=== PATIENT | female | born 1995 | race Caucasian/White ===

== ENCOUNTER 2020-05-21 12:21 | Observation (INO) | payer BC ==
[2020-05-21] MEDS ORDERED: Atropine/Diphenoxylate 0.025-2.5 MG Tab PO PRN (12:32)
[2020-05-21] MEDS ORDERED: Sodium Chloride 0.9% 10 ML Syringe FLUSH PRN ×2 (12:32→18:02)
[2020-05-21] MEDS ORDERED: Ondansetron 4 MG/2 ML SDV IVPUSH PRN (12:32)
[2020-05-21] MEDS ORDERED: Nalbuphine 10 MG/ML Syringe IVPUSH PRN (12:39)
[2020-05-21] MEDS ORDERED: Lactated Ringers 1,000 ML IV SCH ×2 (12:45→18:15)
[2020-05-21] MEDS ORDERED: Misoprostol 200 MCG Tab VAG ONE (13:00)
--- NOTE | 2020-05-21 13:48 | PCM.LDHP ---
L&D History of Present Illness - General Date of Service: 05/21/20 Admit Problem/Dx: Patient Status Order with Admit Dx/Problem 05/21/20 12:32 Patient Status [ADT] Routine Admission Diagnosis/Problem Admission Diagnosis/Problem demise, less than 22 weeks Source of Information: Patient History Limitations: Reports: No Limitations - History of Present Illness Introduction:: 25-year-old -0-0-1 FRANCESCA 10/27/2020 estimated gestational age estimated gestational age 17 weeks and 2 days. Patient had been on vacation in [place] and had vaginal bleeding approximately 2 weeks ago right red vaginal bleeding. At that time ultrasound was obtained heart tones were present. Seen in ER over the weekend before 05/10/2020 with bright red bleeding. heart tones were found. Warts could not rule out placenta abruption. Evidence of abruptio placenta or placenta previa on sonogram at bedside. No evidence of spontaneous rupture membranes. Patient seen on 05/10/[address] Contreras heart tones present. She was still having some bright red vaginal bleeding at that time. The bleeding very [id number] from bright red to brown. Weeks was closed on exam with a weekend when seen in the emergency room. Patient seen by Dr. Contreras on 05/18/2020 16w6d still having bright red and pink vaginal bleeding no cramping baby was moving. 3-hour glucose tolerance test was normal. Ultrasound showed viable intrauterine with normal growth interval. She had a significant decrease in amniotic fluid volume with total MATTHEW just over 6 cm. There is significantly reduced from ultrasound evaluation previously. No evidence of abruptio placentae. heart rate 171. Seen again on 05/19/2020 at 17 weeks 0 days estimated gestational age heart rate 161. Reports only brown spotting. The amount that she is spotting is less than experienced the past 2 weeks. Sound and radiology MATTHEW 6.1. Initial report is negative. (due to early gestation may not be reliable as indicator of ruptured membranes.) 05/21/2020 patient unable to obtain heart tones with Doppler and went to emergency room and [facility] where a sonogram was obtained revealing single intrauterine gestation is identified with measurements measuring at approximately 17 weeks 0 day, which corresponds to the gestational age calcula clarisse by LMP. Minimal amniotic fluid is noted with MATTHEW of less than 5. No heart motion is noted. No movements are noted. Unfortunately, this constellation of findings is compatible with intrauterine demise as clinically suspected. Patient presented to labor and delivery in [place] for evaluation. Bedside ultrasound revealed no movement no heart tones decreased amniotic fluid. Options discussed with patient and and agreed to Cytotec. Sent was obtained for D&C in case needed. Cytotec 800 mcg inserted in the vagina (4 200 g tablets) 1830 hrs. At that time cervix closed. No vaginal bleeding. 03/31/2020 blood type AB+, antibody screen negative, hemoglobin/hematocrit 13.2/39.8, platelets 236,000, Pap smear negative, rubella immune, serology nonreactive, urine culture mixed curtis suggestive of contamination, hepatitis B surface antigen negative, HIV negative, chlamydia negative, gonorrhea negative. 05/02/2020 1 hour OB glucose screen 142. 05/18/2020 nesting blood sugar 88, 1 hour blood sugar 156, 2-hour blood sugar 132, 3-hour blood sugar 44. Improves with: Reports: None Worsens with: Reports: None Associated Symptoms: Reports: N - Related Data Allergies/Adverse Reactions: Allergies Allergy/AdvReac Type Severity Reaction Status Date / Time Cephalosporins Allergy Shortness Verified 03/27/16 10:18 of Breath Sulfa (Sulfonamide Allergy Shortness Verified 03/27/16 10:18 Antibiotics) of Breath gluten AdvReac Abdominal Verified 03/27/16 12:17 Pain ibuprofen [From Motrin] AdvReac Abdominal Verified 03/27/16 12:17 Pain lactose AdvReac Indigestion Verified 03/27/16 12:17 Home Medications: Home Meds Calcium Carbonate [Tums] 500 mg PO Q2HR PRN 03/27/16 [History] Docusate Sodium [Colace] 100 mg PO DAILY PRN 03/27/16 [History] L.acidoph,Paracasei, B.lactis [Probiotic] 1 each PO DAILY 03/27/16 [History] No122/Iron/Folic Acid [ Multi Tablet] 1 each PO DAILY 03/27/16 [History] Benzocaine/Menthol [Dermoplast Pain Relief [place]] 1 applic TOP ASDIRECTED PRN #30 canister 03/30/16 [Rx] traMADol [Ultram] 50 mg PO Q6H PRN #30 tablet 07/14/16 [Rx] 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: - Past Surgical History HEENT Surgical History: Reports: Oral Surgery H&P Review of Systems - Review of Systems: Review Of Systems: See Below General: Reports: No Symptoms HEENT: Reports: No Symptoms Pulmonary: Reports: No Symptoms Cardiovascular: Reports: No Symptoms Gastrointestinal: Reports: No Symptoms Genitourinary: Reports: No Symptoms Musculoskeletal: Reports: No Symptoms Skin: Reports: No Symptoms Psychiatric: Reports: No Symptoms Neurological: Reports: No Symptoms Hematologic/Lymphatic: Reports: No Symptoms Immunologic: Reports: No Symptoms L&D Exam - Exam Exam: See Below - Vital Signs Weight: 151 lb - OB Specific Fundal Height In cm: 15 Heart Tones per Min: 0 - Problem List (1) 17 weeks gestation of SNOMED Code(s): 33908003 ICD Code: Z3A.17 - 17 WEEKS GESTATION OF Status: Acute Current Visit: Yes (2) Missed with demise before 20 completed weeks of gestation SNOMED Code(s): 24598259 ICD Code: O02.1 - MISSED Status: Acute Current Visit: Yes Problem List Initiated/Reviewed/Updated: No Orders Last 24hrs: Active Orders 24 hr Category Date Time Status Patient Status [ADT] Routine ADT 05/21/20 12:32 Active Peripheral IV Care [RC] . DIRECTED Care 05/21/20 12:35 Active VTE/DVT Education [RC] PER UNIT ROUTINE Care 05/21/20 12:32 Active Verify Patient Consent Obtain [RC] ASDIRECTED Care 05/21/20 12:32 Active Vital Signs [RC] PER UNIT ROUTINE Care 05/21/20 12:32 Active Regular Diet [DIET] Diet 05/21/20 Dinner Active CBC WITH AUTO DIFF [HEME] Routine Lab 05/21/20 13:25 Ordered TYPE AND SCREEN [BBK] Routine Lab 05/21/20 13:26 Ordered Atropine/Diphenoxylate [Lomotil 0.025-2.5 MG] Med 05/21/20 12:32 Active 2 tab PO ONETIME PRN Lactated Ringers [Ringers, Lactated] 1,000 ml Med 05/21/20 12:45 Active IV ASDIRECTED Nalbuphine [Nubain] Med 05/21/20 12:39 Active 10 mg IVPUSH Q2H PRN Ondansetron [Zofran] Med 05/21/20 12:32 Active 4 mg IVPUSH Q6H PRN Sodium Chloride 0.9% [Saline Flush] Med 05/21/20 12:32 Active 10 ml FLUSH ASDIRECTED PRN Peripheral IV Insertion Adult [OM.PC] Routine Oth 05/21/20 12:32 Ordered Resuscitation Status Routine Resus Stat 05/21/20 12:32 Ordered Medication Orders Diphenoxylate HCl/Atropine (Lomotil 0.025-2.5 Mg) 2 tab PO ONETIME PRN PRN Reason: Diarrhea Lactated Ringer's (Ringers, Lactated) 1,000 mls @ 125 mls/hr IV ASDIRECTED DERRICK Nalbuphine HCl (Nubain) 10 mg IVPUSH Q2H PRN PRN Reason: Abdominal Pain Ondansetron HCl (Zofran) 4 mg IVPUSH Q6H PRN PRN Reason: Nausea/Vomiting Sodium Chloride (Saline Flush) 10 ml FLUSH ASDIRECTED PRN PRN Reason: Keep Vein Open Assessment/Plan Comment:: Plan Cytotec to complete miscarriage.
[2020-05-21] MEDS ORDERED: Acetaminophen 325 MG Tab PO PRN (16:12)
[2020-05-21 17:32] VITALS: BP 117/56; PULSE 71
[2020-05-21] MEDS ORDERED: Lidocaine 1%/Sod Bicarbonate in NS 8.4% 1 ML Syringe IDERM PRN (18:02)
[2020-05-21] MEDS ORDERED: Oxytocin/Lactated Ringers 20 UNIT/1,000 ML BAG IV SCH (18:30)
--- NOTE | 2020-05-21 19:00 | PCM.OPNOTE ---
- General Post-Op/Procedure Note Date of Surgery/Procedure: 05/21/20 Operative Procedure(s): Completed missed surgically [id number] Pre Op Diagnosis: Missed Post-Op Diagnosis: Same Anesthesia Technique: Other (see below) (None) Primary Surgeon: Pranay Ko EBL in mLs: 100 Drain/Tube Comments:: none Complications: None Condition: Good Free Text/Narrative:: Patient was given Cytotec 800 mcg intravaginal at approximately 1330 hrs. and fetus asked at 1810 hrs. Continued cramping and at 1835 hrs. placenta was delivered intact utilizing ring forceps and long weighted speculum. Patient's blood type is AB+. Patient will be continued on Cytotec 200 mcg p.o. every 6-8 hours dispense 16 take until completed. Patient has appointment to see Dr. Ben Chandler.
--- NOTE | 2020-05-21 19:12 | PCM.DCSUM1 ---
Discharge Summary - Hospital Course Free Text/Narrative:: [facility] Post-Op/Procedure Note Patient Name: ROXANA KING Date of : 89 Patient Status: Observation Attending Provider: Pranay Ko Date: 05/21/20 18:56 Initialization Date: 05/21/20 18:56 - General Post-Op/Procedure Note Date of Surgery/Procedure: 05/21/20 Operative Procedure(s): Completed missed surgically [id number] Pre Op Diagnosis: Missed Post-Op Diagnosis: Same Anesthesia Technique: Other (see below) (None) Primary Surgeon: Pranay Ko EBL in mLs: 100 Drain/Tube Comments:: none Complications: None Condition: Good Free Text/Narrative:: Patient was given Cytotec 800 mcg intravaginal at approximately 1330 hrs. and fetus asked at 1810 hrs. Continued cramping and at 1835 hrs. placenta was delivered intact utilizing ring forceps and long weighted speculum. Patient's blood type is AB+. Patient will be continued on Cytotec 200 mcg p.o. every 6-8 hours dispense 16 take until completed. Patient has appointment to see Dr. Ben Chandler. HPI Initial Comments: [facility] Post-Op/Procedure Note Patient Name: ROXANA KING Date of : [birth year] Patient Status: Observation Attending Provider: Pranay Ko Date: 05/21/20 18:56 Initialization Date: 05/21/20 18:56 - General Post-Op/Procedure Note Date of Surgery/Procedure: 05/21/20 Operative Procedure(s): Completed missed surgically [id number] Pre Op Diagnosis: Missed Post-Op Diagnosis: Same Anesthesia Technique: Other (see below) (None) Primary Surgeon: Pranay Ko EBL in mLs: 100 Drain/Tube Comments:: none Complications: None Condition: Good Free Text/Narrative:: Patient was given Cytotec 800 mcg intravaginal at approximately 1330 hrs. and fetus asked at 1810 hrs. Continued cramping and at 1835 hrs. placenta was delivered intact utilizing ring forceps and long weighted speculum. Patient's blood type is AB+. Patient will be continued on Cytotec 200 mcg p.o. every 6-8 hours dispense 16 take until completed. Patient has appointment to see Dr. Ben Chandler. Brief History: [facility] . Post-Op/Procedure Note. Patient Name: ROXANA KING Record Number: [id number]. Date of : [birth year]Patient Status: Observation. Attending Provider: Pranay Koount Number: [id number]. Date: 05/21/20 18:56Initialization Date: 05/21/20 18:56. - General Post-Op/Procedure Note. Date of Surgery/Procedure: 05/21/20. Operative Procedure(s): Completed missed surgically [id number]. Pre Op Diagnosis: Missed . Post-Op Diagnosis: Same. Anesthesia Technique: Other (see below) (None). Primary Surgeon: Pranay Ko. EBL in mLs: 100. Drain/Tube Comments:: none. Complications: None. Condition: Good. Free Text/Narrative:: Patient was given Cytotec 800 mcg intravaginal at approximately 1330 hrs. and fetus asked at 1810 hrs. Continued cramping and at 1835 hrs. placenta was delivered intact utilizing ring forceps and long weighted speculum. Patient's blood type is AB+. Patient will be continued on Cytotec 200 mcg p.o. every 6-8 hours dispense 16 take until completed. Patient has appointment to see Dr. Ben Chandler. Diagnosis: Stroke: No - Discharge Data Discharge Date: 05/21/20 Discharge Disposition: Home, Self-Care 01 Condition: Good - Referral to Home Health Primary Care Physician: Jin Contreras MD - Discharge Diagnosis/Problem(s) (1) 17 weeks gestation of SNOMED Code(s): 66072615 ICD Code: Z3A.17 - 17 WEEKS GESTATION OF Status: Acute Current Visit: Yes (2) Missed with demise before 20 completed weeks of gestation SNOMED Code(s): 16187320 ICD Code: O02.1 - MISSED Status: Acute Current Visit: Yes - Patient Summary/Data Operative Procedure(s) Performed: Completed missed surgically [id number] Complications: None Consults: None Hospital Course: Uncomplicated - Patient Instructions Diet: Usual Diet as Tolerated Driving: Do Not Drive (X48 hours) Showering/Bathing: May Shower, No Tub Bathing/Swimming (x6 weeks) Notify Provider of: Fever (100.4 on 2 occasions 2 hours apart), Increased Pain, Swelling and Redness, Drainage, Nausea and/or Vomiting - Discharge Plan *PRESCRIPTION DRUG MONITORING PROGRAM REVIEWED*: Not Applicable *COPY OF PRESCRIPTION DRUG MONITORING REPORT IN PATIENT SERENITY: Not Applicable Prescriptions/Med Rec: miSOPROStoL [Cytotec] 200 mcg PO Q6H #15 tablet Ibuprofen [Motrin] 600 mg PO Q6H PRN #50 tab PRN Reason: Pain Home Medications: Home Meds Calcium Carbonate [Tums] 500 mg PO Q2HR PRN 03/27/16 [History] Docusate Sodium [Colace] 100 mg PO DAILY PRN 03/27/16 [History] L.acidoph,Paracasei, B.lactis [Probiotic] 1 each PO DAILY 03/27/16 [History] No122/Iron/Folic Acid [ Multi Tablet] 1 each PO DAILY 03/27/16 [History] Benzocaine/Menthol [Dermoplast Pain Relief [place]] 1 applic TOP ASDIRECTED PRN #30 canister 03/30/16 [Rx] traMADol [Ultram] 50 mg PO Q6H PRN #30 tablet 03/30/16 [Rx] Acetaminophen [Tylenol] 650 mg PO Q4H PRN tablet 05/21/20 [Rx] Ibuprofen [Motrin] 600 mg PO Q6H PRN #50 tab 05/21/20 [Rx] miSOPROStoL [Cytotec] 200 mcg PO Q6H #15 tablet 05/21/20 [Rx] Referrals: Jin Contreras MD [Primary Care Provider] - (Appointment Sunday) - Discharge Summary/Plan Comment DC Time >30 min.: No - Patient Data Vitals - Most Recent: Last Vital Signs Temp 98.5 F 05/21/20 17:31 Pulse 71 05/21/20 17:31 Resp 18 05/21/20 15:56 BP 117/56 L 05/21/20 17:31 Pulse Ox 99 05/21/20 16:15 Weight - Most Recent: 151 lb Lab Results - Last 24 hrs: Laboratory Results - last 24 hr 05/21/20 05/21/20 05/21/20 Range/Units 13:35 14:48 14:48 WBC 9.01 (3.98-10.04) K/mm3 RBC 4.19 (3.98-5.22) M/mm3 Hgb 12.9 (11.2-15.7) gm/dl Hct 37.7 (34.1-44.9) % MCV 90.0 (79.4-94.8) fl MCH 30.8 (25.6-32.2) pg MCHC 34.2 (32.2-35.5) g/dl RDW Std Deviation 39.9 (36.4-46.3) fL Plt Count 294 (182-369) K/mm3 MPV 11.0 (9.4-12.3) fl Neut % (Auto) 70.5 (34.0-71.1) % Lymph % (Auto) 20.3 (19.3-51.7) % Milam % (Auto) 6.5 (4.7-12.5) % Eos % (Auto) 2.1 (0.7-5.8) Baso % (Auto) 0.3 (0.1-1.2) % Neut # (Auto) 6.34 H (1.56-6.13) K/mm3 Lymph # (Auto) 1.83 (1.18-3.74) K/mm3 Milam # (Auto) 0.59 H (0.24-0.36) K/mm3 Eos # (Auto) 0.19 (0.04-0.36) K/mm3 Baso # (Auto) 0.03 (0.01-0.08) K/mm3 COVID-19 (LEX) Negative (NEGATIVE) Blood Type AB POSITIVE Gel Antibody Screen Negative Med Orders - Current: Current Medications Acetaminophen (Tylenol) 650 mg PO Q4H PRN PRN Reason: Fever Last Admin: 05/21/20 16:17 Dose: 650 mg Documented by: Diphenoxylate HCl/Atropine (Lomotil 0.025-2.5 Mg) 2 tab PO ONETIME PRN PRN Reason: Diarrhea Lactated Ringer's (Ringers, Lactated) 1,000 mls @ 125 mls/hr IV ASDIRECTED DERRICK Last Admin: 05/21/20 16:10 Dose: 125 mls/hr Documented by: Oxytocin/Lactated Ringer's (Pitocin In Lr 20 Units/1,000 Ml) 20 unit in 1,000 mls @ 6 mls/hr IV TITRATE DERRICK; Protocol Last Admin: 05/21/20 18:43 Dose: 6 mls/hr Documented by: Lidocaine/Sodium Bicarbonate (Buffered Lidocaine 1% In Ns 8.4%) 0.25 ml IDERM ONETIME PRN PRN Reason: Prior to IV Start Nalbuphine HCl (Nubain) 10 mg IVPUSH Q2H PRN PRN Reason: Abdominal Pain Last Admin: 05/21/20 17:20 Dose: 5 mg Documented by: Ondansetron HCl (Zofran) 4 mg IVPUSH Q6H PRN PRN Reason: Nausea/Vomiting Sodium Chloride (Saline Flush) 10 ml FLUSH ASDIRECTED PRN PRN Reason: Keep Vein Open Discontinued Medications Lactated Ringer's (Ringers, Lactated) 1,000 mls @ 125 mls/hr IV ASDIRECTED [facility] Misoprostol (Cytotec) 800 mcg VAG ONETIME ONE Stop: 05/21/20 13:01 Last Admin: 05/21/20 13:24 Dose: 800 mcg Documented by: Sodium Chloride (Saline Flush) 10 ml FLUSH ASDIRECTED PRN PRN Reason: Keep Vein Open
== END 2020-05-21 22:40 | disposition home or self-care (01) ==
LOC: JD.OBCHECK 12:21 → JD.OB 12:21 → JD.OBCHECK 12:32 → JD.OB 12:32
PROVIDERS: ADMIT Obstetrics & Gynecology; ATTEND Obstetrics & Gynecology
DX: O02.1 Missed abortion (principal); Z88.1 Allergy status to other antibiotic agents; Z88.2 Allergy status to sulfonamides; Z88.6 Allergy status to analgesic agent; Z91.011 Allergy to milk products; Z01.812 Encounter for preprocedural laboratory examination; Z20.828 Contact with and (suspected) exposure to other viral communicable diseases; Z79.899 Other long term (current) drug therapy
CPT/HCPCS: 36415; 59821; 85025; 86850; 86900; 86901; 87635; 96374; 96375; A9270; G0378; J2300; J2590; J7120; U0002

== ENCOUNTER → 2020-06-25 | Day surgery (SDC) | payer BC ==
[~2020-06-25] MED LIST: Clindamycin Phosphate in D5W 900 MG in Premix Bag 1 BAG IV SCH; Dexamethasone 4 MG/ML SDV ONE; Ibuprofen 600 MG Tab PO PRN; Ketamine 500 mg/10 ML MDV ONE; Ketorolac 30 MG/ML SDV IVPUSH SCH; Ketorolac 30 MG/ML SDV ONE; Lactated Ringers 1,000 ML IV SCH; Lidocaine 1% 4 ML ONE; Lidocaine 1%/Sod Bicarbonate in NS 8.4% 1 ML Syringe IDERM PRN; Midazolam 1 MG/ML 2 ML SDV ONE; Ondansetron 4 MG/2 ML SDV ONE; Propofol 200 MG/20 ML SDV ONE; Scopolamine 1.5 MG Transdermal Patch TRDERM PRN; Sodium Chloride 0.9% 10 ML Syringe FLUSH PRN; diphenhydrAMINE 50 MG/ML SDV ONE; fentaNYL 100 MCG/2 ML SDV IVPUSH PRN; fentaNYL 100 MCG/2 ML SDV ONE
--- NOTE | 2020-06-25 07:38 | PCM.PREANE ---
Preanesthetic Assessment - Procedure Proposed Procedure: Suction D&C - Anesthesia/Transfusion/Family Hx Anesthesia History: Prior Anesthesia Without Reaction Family History of Anesthesia Reaction: No Transfusion History: No Prior Transfusion(s) Intubation History: Unknown - Review of Systems General: No Symptoms Pulmonary: No Symptoms ( ETOH: rarely) Cardiovascular: No Symptoms (Has had some epidodes with hypotension in the past. (Asymptomatic)) Gastrointestinal: No Symptoms (Motion sickness) Neurological: No Symptoms Other: Reports: None, Depression, Anxiety (History of panic attacks) - Physical Assessment NPO Status Date: 06/24/20 NPO Status Time: 21:00 Vital Signs: HR:87 Sat:97% Temp:97.7 B/P:122/69 Resp:18 Height: 1.63 m Weight: 71 kg ASA Class: 2 Mental Status: Alert & Oriented x3 Airway Class: Mallampati = 2 Dentition: Reports: Normal Dentition, Caries Thyro-Mental Finger Breadths: 3 Mouth Opening Finger Breadths: 3 ROM/Head Extension: Full Lungs: Clear to Auscultation, Normal Respiratory Effort Cardiovascular: Regular Rate, Regular Rhythm, No Murmurs - Lab Values: All labs reviewed and noted and within acceptable ranges to proceed with scheduled procedure. - Allergies Allergies/Adverse Reactions: Allergies Allergy/AdvReac Type Severity Reaction Status Date / Time Cephalosporins Allergy Shortness Verified 06/25/20 08:27 of Breath escitalopram [From Lexapro] Allergy suicidal Verified 06/25/20 08:27 ideations Sulfa (Sulfonamide Allergy Shortness Verified 06/25/20 08:27 Antibiotics) of Breath gluten AdvReac Abdominal Verified 06/25/20 08:27 Pain ibuprofen [From Motrin] AdvReac Abdominal Verified 06/25/20 08:27 Pain lactose AdvReac Indigestion Verified 06/25/20 08:27 - Anesthesia Plan Pre-Op Medication Ordered: None - Acknowledgements Anesthesia Type Planned: General Anesthesia, MAC Pt an Appropriate Candidate for the Planned Anesthesia: Yes Alternatives and Risks of Anesthesia Discussed w Pt/Guardian: Yes Pt/Guardian Understands and Agrees with Anesthesia Plan: Yes PreAnesthesia Questionnaire HEENT History: Reports: None Cardiovascular History: Reports: Heart Murmur Other Cardiovascular History: 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: Other OB/BYN History: 17 wk IUFD after 15 wk PROM Psychiatric History: Reports: Anxiety, Depression, Suicidal Ideation, Other (See Below) Other Psychiatric History: had suicidal thoughts with taking antidepressants, never intention to follow through, denies any thoughts when off the meds - Past Surgical History HEENT Surgical History: Reports: Oral Surgery - HOME MEDS Home Medications: Home Meds L.acidoph,Paracasei, B.lactis [Probiotic] 1 each PO DAILY 03/27/16 [History] No122/Iron/Folic Acid [ Multi Tablet] 1 each PO DAILY 03/27/16 [History] Acetaminophen [Tylenol] 650 mg PO Q4H PRN tablet 05/21/20 [Rx] Fish Oil/Slater-3 Fatty Acids [Fish Oil 1,000 MG] 1 gm PO DAILY 06/25/20 [History] - CURRENT (IN HOUSE) MEDS Current Meds: Current Medications Lactated Ringer's (Ringers, Lactated) 1,000 mls @ 125 mls/hr IV ASDIRECTED DERRICK Stop: 06/25/20 23:00 Lidocaine/Sodium Bicarbonate (Buffered Lidocaine 1% In Ns 8.4%) 0.25 ml IDERM ONETIME PRN PRN Reason: Prior to IV Start Stop: 06/25/20 18:00 Sodium Chloride (Saline Flush) 10 ml FLUSH ASDIRECTED PRN PRN Reason: Keep Vein Open Stop: 06/25/20 18:00
--- NOTE | 2020-06-25 09:50 | PCM.OPNOTE ---
- General Post-Op/Procedure Note Date of Surgery/Procedure: 06/25/20 Operative Procedure(s): Dilation and suction curettage Findings: Uterus sounded to 9 cm. Cervix was minimally dilated. Endometrial curettings consistent with retained products of conception. Pre Op Diagnosis: 1. Retained products of conception. 2. Abnormal uterine bleeding Post-Op Diagnosis: Same Anesthesia Technique: MAC Primary Surgeon: Jin Contreras Anesthesia Provider: Saritha Rosales Flight Attendant/Inflight Supervisor: Sanna Fitzgerald Pathology: Endometrial curettings, consistent with retained products of conception. Fluid Replacement, Intraop: 700 EBL in mLs: 5 Complications: None Condition: Good Free Text/Narrative:: Surgery duration: 6 minutes The patient was taken to the operating room and placed in a supine position ope rating table. She received 90 mg of clindamycin preoperatively for infection prophylaxis. After adequate general MAC anesthesia patient was placed in a dorsal lithotomy position. A weighted speculum was placed in the vagina. Cervix is found to be dilated to approximately 5 centimeters. Uterus was sounded to approximately 9 cm. It was found to be posterior and mid position. A 7 mm suction curette was then introduced in routine fashion the endometrial cavity was evacuated. Moderate amount tissue was obtained. Findings consistent with products of conception. A medium size sharp curet was introduced and very careful fashion the endometrial cavity was curetted. It was be clear of any further tissue. The suction curet was then reintroduced and small and blood was removed. No further tissue was removed. This point the D&C was discontinued. The single-toothed tenaculum used to stabilize the anterior lip the cervix was removed. Blood was removed from the vagina with a stick sponge and the weighted speculum was removed from the vagina. The patient was awakened from LMA anesthesia. The patient was discharged from the operating room in good condition.
--- NOTE | 2020-06-25 13:14 | PCM48HPAN ---
Post Anesthesia Note - EVALUATION WITHIN 48HRS OF ANESTHETIC Vital Signs in Normal Range: Yes Patient Participated in Evaluation: Yes Respiratory Function Stable: Yes Airway Patent: Yes Cardiovascular Function Stable: Yes Hydration Status Stable: Yes Pain Control Satisfactory: Yes Nausea and Vomiting Control Satisfactory: Yes Mental Status Recovered: Yes Vital Signs: Last Vital Signs Temp 97.5 F 06/25/20 10:00 Pulse 64 06/25/20 10:00 Resp 18 06/25/20 10:00 BP 110/76 06/25/20 10:00 Pulse Ox 97 06/25/20 10:00
[2020-06-25 13:29] VITALS: BP 99/57; PULSE 68
== END | disposition home or self-care (01) ==
LOC: JD.SDS 07:38
PROVIDERS: ATTEND Obstetrics & Gynecology
DX: O73.1 Retained portions of placenta and membranes, without hemorrhage (principal); N93.9 Abnormal uterine and vaginal bleeding, unspecified; F41.9 Anxiety disorder, unspecified; J45.909 Unspecified asthma, uncomplicated; F41.8 Other specified anxiety disorders; F41.0 Panic disorder [episodic paroxysmal anxiety]; Z79.899 Other long term (current) drug therapy; Z88.8 Allergy status to other drugs, medicaments and biological substances; Z88.2 Allergy status to sulfonamides
CPT/HCPCS: 59160; A9270; J1100; J1200; J1885; J2001; J2250; J2405; J2704; J3010; J3490; J7120; 01965

== ENCOUNTER 2020-06-29 09:29 | Emergency (ER) | payer BC ==
[2020-06-29 09:40] VITALS: BP 129/81; PULSE 111
--- NOTE | 2020-06-29 09:50 | EDM.PDOC ---
ED HPI GENERAL MEDICAL PROBLEM - General Chief Complaint: Gastrointestinal Problem Stated Complaint: WEAKNESS/CONFUSION/DIZZY/POST SURGERY Time Seen by Provider: 06/29/20 09:50 - History of Present Illness INITIAL COMMENTS - FREE TEXT/NARRATIVE: 25-year-old female comes the emergency room with lower abdominal pain nausea and vomiting. The patient had a termination of due to a demise. This was nearly a month ago she was having complications after this and underwent a D&C this last Sunday now 5 days ago. She was seen in the gynecology clinic yesterday where she had a urinalysis that was possibly suggestive of a UTI. She was started on Macrobid however has been unable to take this due to nausea and vomiting. She has not had any fevers or chills but generally just feels awful. Prior to the D&C she was treated for bacterial vaginosis with metronidazole and has suffered some side effects from this most notably lower extremity numbness. Pelvic Pain Score (Numeric/FACES): 4 - Related Data Allergies Allergy/AdvReac Type Severity Reaction Status Date / Time Cephalosporins Allergy Severe Shortness Verified 06/29/20 09:40 of Breath Sulfa (Sulfonamide Allergy Severe Shortness Verified 06/29/20 09:40 Antibiotics) of Breath escitalopram [From Lexapro] AdvReac Severe suicidal Verified 06/29/20 09:40 ideations gluten AdvReac Severe Abdominal Verified 06/29/20 09:40 Pain ibuprofen [From Motrin] AdvReac Severe Abdominal Verified 06/29/20 09:40 Pain lactose AdvReac Severe Indigestion Verified 06/29/20 09:40 metronidazole [From Flagyl] AdvReac Severe Numbness Verified 06/29/20 09:40 Home Meds: Home Meds L.acidoph,Paracasei, B.lactis [Probiotic] 1 each PO DAILY 03/27/16 [History] Multivitamin 1 each PO DAILY 06/29/20 [History] Ondansetron [Zofran ODT] 4 mg PO Q6H PRN #8 tab.dis 06/29/20 [Rx] Past Medical History HEENT History: Reports: None Cardiovascular History: Reports: Heart Murmur Other Cardiovascular History: mild s1 murmur in Respiratory History: Reports: None Gastrointestinal History: Reports: None Genitourinary History: Reports: None 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: , 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 Other MEASURING MACHINE TENDER History: 17 wk IUFD after 15 wk PROM Musculoskeletal History: Reports: None Neurological History: Reports: None Psychiatric History: Reports: Anxiety, Depression, Suicidal Ideation, Other (See Below) Other Psychiatric History: had suicidal thoughts with taking antidepressants, never intention to follow through, denies any thoughts when off the meds Endocrine/Metabolic History: Reports: None Hematologic History: Reports: None Immunologic History: Reports: None Oncologic (Cancer) History: Reports: None Dermatologic History: Reports: None - Infectious Disease History Infectious Disease History: Reports: None - Past Surgical History HEENT Surgical History: Reports: Oral Surgery Female Surgical History: Reports: D&C Social & Family History - Family History Endocrine/Metabolic: Reports: Diabetes, Type I, Diabetes, type II Hematologic: Reports: Bleeding Disorder Oncologic: Reports: Lung - Tobacco Use Tobacco Use Status *Q: Never Tobacco User - Caffeine Use Caffeine Use: Reports: None - Recreational Drug Use Recreational Drug Use: No ED ROS GENERAL - Review of Systems Review Of Systems: See Below Constitutional: Reports: No Symptoms HEENT: Reports: No Symptoms Respiratory: Reports: No Symptoms Cardiovascular: Reports: No Symptoms GI/Abdominal: Reports: Abdominal Pain, Nausea. Denies: Constipation, Diarrhea : Reports: Other (Bladder pain) Musculoskeletal: Reports: No Symptoms Skin: Reports: No Symptoms Neurological: Reports: No Symptoms Hematologic/Lymphatic: Reports: No Symptoms Immunologic: Reports: No Symptoms ED EXAM, GENERAL - Physical Exam Exam: See Below Exam Limited By: No Limitations General Appearance: Alert, No Apparent Distress, Anxious Head: Atraumatic, Normocephalic Neck: Normal Inspection, Supple, Non-Tender, Full Range of Motion. No: Lymphadenopathy (R) Respiratory/Chest: No Respiratory Distress, Lungs Clear, Normal Breath Sounds Cardiovascular: Regular Rate, Rhythm, No Edema, No Murmur GI/Abdominal: Normal Bowel Sounds, Soft, Tender (Some vague tenderness that is very mild throughout. Most notable tenderness is in the suprapubic area and this is more significant. However no rigidity rebound or guarding noted). No: Guarding, Rigid, Rebound Back Exam: Normal Inspection. No: CVA Tenderness (L) Neurological: Alert, Oriented, Normal Cognition Psychiatric: Anxious (Mildly anxious about her overall situation) Course - Vital Signs Last Recorded V/S: Last Vital Signs Temp 36.1 C 10/13/20 09:35 Pulse 111 H 06/29/20 09:35 Resp 16 06/29/20 09:35 BP 129/81 06/29/20 09:35 Pulse Ox 100 06/29/20 09:35 - Orders/Labs/Meds Orders: Active Orders 24 hr Category Date Time Status CULTURE URINE [RM] Stat Lab 06/29/20 10:09 Received Lactated Ringers [Ringers, Lactated] 1,000 ml Med 06/29/20 09:55 Active IV ASDIRECTED Lactated Ringers [Ringers, Lactated] 1,000 ml Med 06/29/20 11:15 Active IV ASDIRECTED Medication Orders Lactated Ringer's (Ringers, Lactated) 1,000 mls @ 1,000 mls/hr IV ASDIRECTED DERRICK Last Admin: 06/29/20 10:05 Dose: 1,000 mls/hr Documented by: JORY Lactated Ringer's (Ringers, Lactated) 1,000 mls @ 150 mls/hr IV ASDIRECTED DERRICK Last Admin: 06/29/20 11:15 Dose: 150 mls/hr Documented by: JORY Labs: Laboratory Tests 06/29/20 06/29/20 06/29/20 Range/Units 09:35 09:35 10:09 WBC 8.32 (3.98-10.04) K/mm3 RBC 5.08 (3.98-5.22) M/mm3 Hgb 15.4 (11.2-15.7) gm/dl Hct 45.4 H (34.1-44.9) % MCV 89.4 (79.4-94.8) fl MCH 30.3 (25.6-32.2) pg MCHC 33.9 (32.2-35.5) g/dl RDW Std Deviation 38.4 (36.4-46.3) fL Plt Count 305 (182-369) K/mm3 MPV 11.2 (9.4-12.3) fl Neut % (Auto) 71.0 (34.0-71.1) % Lymph % (Auto) 20.7 (19.3-51.7) % [place] % (Auto) 5.6 (4.7-12.5) % Eos % (Auto) 2.2 (0.7-5.8) Baso % (Auto) 0.4 (0.1-1.2) % Neut # (Auto) 5.91 (1.56-6.13) K/mm3 Lymph # (Auto) 1.72 (1.18-3.74) K/mm3 [place] # (Auto) 0.47 H (0.24-0.36) K/mm3 Eos # (Auto) 0.18 (0.04-0.36) K/mm3 Baso # (Auto) 0.03 (0.01-0.08) K/mm3 Sodium 139 (136-145) mEq/L Potassium 3.6 (3.5-5.1) mEq/L Chloride 102 (98-107) mEq/L Carbon Dioxide 25 (21-32) mEq/L Anion Gap 15.6 H (5-15) BUN 8 (7-18) mg/dL Creatinine 0.7 (0.55-1.02) mg/dL Est Cr Clr Drug Dosing 109.59 mL/min Estimated GFR (MDRD) > 60 (>60) mL/min BUN/Creatinine Ratio 11.4 L (14-18) Glucose 134 H (74-106) mg/dL Calcium 9.2 (8.5-10.1) mg/dL Total Bilirubin 0.6 (0.2-1.0) mg/dL AST 24 (15-37) U/L ALT 46 (14-59) U/L Alkaline Phosphatase 57 (46-116) U/L Total Protein 8.0 (6.4-8.2) g/dl Albumin 4.3 (3.4-5.0) g/dl Globulin 3.7 gm/dL Albumin/Globulin Ratio 1.2 (1-2) Urine Color Yellow (Yellow) Urine Appearance Clear (Clear) Urine pH 7.0 (5.0-8.0) Ur Specific [place] 1.015 (1.005-1.030) Urine Protein Negative (Negative) Urine Glucose (UA) Negative (Negative) Urine Ketones Trace H (Negative) Urine Occult Blood Trace-lysed H (Negative) Urine Nitrite Positive H (Negative) Urine Bilirubin Negative (Negative) Urine Urobilinogen 0.2 (0.2-1.0) Ur Leukocyte Esterase Negative (Negative) Urine RBC 0-5 (0-5) /hpf Urine WBC Not seen (0-5) /hpf Ur Squamous Epith Cells 0-5 (0-5) /hpf Urine Bacteria Few (FEW) /hpf Urine Mucus Not seen (FEW) /hpf Meds: Medications Generic Name Dose Route Start Last Admin Trade Name Freq PRN Reason Stop Dose Admin Lactated Ringer's 1,000 mls @ 1,000 mls/hr 06/29/20 09:55 06/29/20 10:05 Ringers, Lactated IV 1,000 mls/hr ASDIRECTED DERRICK Administration Lactated Ringer's 1,000 mls @ 150 mls/hr 06/29/20 11:15 06/29/20 11:15 Ringers, Lactated IV 150 mls/hr ASDIRECTED DERRICK Administration Discontinued Medications Generic Name Dose Route Start Last Admin Trade Name Freq PRN Reason Stop Dose Admin Ondansetron HCl 4 mg 06/29/20 09:54 06/29/20 10:05 Zofran IVPUSH 06/29/20 09:55 4 mg ONETIME ONE Administration - Re-Assessments/Exams Free Text/Narrative Re-Assessment/Exam: 06/29/20 12:34 Urinalysis is positive only for nitrates however the patient took an Azo last night. Laboratory evaluation shows anion gap is slightly elevated at 15.9. Otherwise chemistries and CBC are for the most part normal. I discussed the si tuation with Dr. Contreras. He is fairly convinced that her pain was coming from the bladder area. The patient is really reluctant to take an unnecessary antibiotic at this point because the night is all that she took really did not number on her she still having some numbness in her legs as a result of this. At this point she has a urine culture pending from the urine Dr. Contreras obtained yesterday and if this is unrevealing we could recheck another urine tomorrow. At this point we will just hold off on her taking anything except for Zofran as needed for nausea so she can stay hydrated put her on a clear liquid diet for the next 24 hours and have her follow-up tomorrow for repeat UA. Repeat abdominal exam shows good bowel sounds no rigidity rebound or guarding she has some suprapubic discomfort. Vague minimal abdominal pain noted elsewhere. He has nothing close to a surgical abdomen. We did discuss the pros and cons of CT evaluation and the patient agrees on holding off at this time. Departure - Departure Time of Disposition: 12:32 Disposition: Home, Self-Care 01 Clinical Impression: Abdominal pain - Discharge Information Referrals: PCP,None [Ordering Only Provider] - Forms: ED Department Discharge Additional Instructions: Return to the emergency room with any questions problems or worsening symptoms. Clear liquid diet for the next 24 hours then slowly advance as tolerated. You have had a prescription sent to your pharmacy for Zofran, this is a oral antinausea medication use 1 every 6 hours only if needed for nausea control and vomiting. Follow-up with Dr. Contreras tomorrow for repeat urinalysis. Sepsis Event Note (ED) - Evaluation Sepsis Screening Result: No Definite Risk - Focused Exam Vital Signs: Vital Signs Temp Pulse Resp BP Pulse Ox 06/29/20 09:35 36.1 C 111 H 16 129/81 100 - My Orders Last 24 Hours: My Active Orders 06/29/20 09:55 Lactated Ringers [Ringers, Lactated] 1,000 ml IV ASDIRECTED 06/29/20 10:09 CULTURE URINE [RM] Stat 06/29/20 11:15 Lactated Ringers [Ringers, Lactated] 1,000 ml IV ASDIRECTED - Assessment/Plan Last 24 Hours: My Active Orders 06/29/20 09:55 Lactated Ringers [Ringers, Lactated] 1,000 ml IV ASDIRECTED 06/29/20 10:09 CULTURE URINE [RM] Stat 06/29/20 11:15 Lactated Ringers [Ringers, Lactated] 1,000 ml IV ASDIRECTED
[2020-06-29] MEDS ORDERED: Ondansetron 4 MG/2 ML SDV IVPUSH ONE (09:54)
[2020-06-29] MEDS ORDERED: Lactated Ringers 1,000 ML IV SCH ×2 (09:55→11:15)
== END 2020-06-29 12:50 | disposition home or self-care (01) ==
LOC: JD.ED 09:29
DX: R10.30 Lower abdominal pain, unspecified (principal); R11.2 Nausea with vomiting, unspecified; Z88.1 Allergy status to other antibiotic agents; Z88.2 Allergy status to sulfonamides; Z91.048 Other nonmedicinal substance allergy status; Z88.6 Allergy status to analgesic agent
CPT/HCPCS: 36415; 80053; 81001; 85025; 87086; 87088; 87186; 96361; 96374; 99284; J2405; J7120; 99283

== ENCOUNTER 2021-10-27 23:23 | Inpatient (IN) | payer BC ==
[2021-10-28] MEDS ORDERED: Calcium Carbonate 500 MG Tab.Chew PO PRN (00:05)
[2021-10-28] MEDS ORDERED: Acetaminophen 325 MG Tab PO PRN (00:05)
[2021-10-28] MEDS ORDERED: Lidocaine 1% 50 ML MDV INJECT PRN (00:05)
[2021-10-28] MEDS ORDERED: Ondansetron 4 MG/2 ML SDV IVPUSH PRN (00:05)
[2021-10-28] MEDS ORDERED: Nalbuphine 10 MG/1 ML Vial IVPUSH PRN (00:05)
[2021-10-28] MEDS ORDERED: Ampicillin 2 GM in Sodium Chloride 0.9% 100 ML IV ONE (00:05)
[2021-10-28] MEDS ORDERED: Oxytocin/Lactated Ringers 10 UNIT/1,000 ML BAG IV SCH ×2 (00:15)
[2021-10-28] MEDS ORDERED: Ampicillin 1 GM in Sodium Chloride 0.9% 100 ML IV SCH (00:15)
[2021-10-28] MEDS ORDERED: Phenylephrine/Normal Saline 100 MCG/ML 10 ML Syringe ONE (02:00)
[2021-10-28] MEDS ORDERED: fentaNYL 100 MCG/2 ML SDV EPIDUR PRN (02:26)
[2021-10-28] MEDS ORDERED: ePHEDrine 50 MG/ML SDV IVPUSH PRN (02:26)
[2021-10-28] MEDS ORDERED: diphenhydrAMINE 50 MG/ML SDV IVPUSH PRN (02:26)
[2021-10-28] MEDS ORDERED: Bupivacaine/fentaNYL/NS 100 ML Bag EPIDUR PRN (02:26)
[2021-10-28] MEDS: Lactated Ringers 1,000 ML IV SCH ×5 (03:03→09:20)
[2021-10-28] MEDS ORDERED: Dexmedetomidine 200 MCG/2 ML SDV ONE (04:36)
[2021-10-28] MEDS: Ampicillin 1 GM in Sodium Chloride 0.9% 100 ML IV SCH ×3 (04:42→12:46)
[2021-10-28] MEDS ORDERED: Ibuprofen 600 MG Tab PO PRN (13:29)
[2021-10-28] MEDS ORDERED: Benzocaine/Menthol 20%-0.5% Spray 78 GM Cannister TOP PRN (14:26)
[2021-10-28] MEDS ORDERED: Docusate Sodium 100 MG Cap PO PRN (14:26)
[2021-10-28] MEDS ORDERED: Witch Hazel Medicated Pads 40/Jar TOP PRN (14:26)
[2021-10-28] MEDS: Acetaminophen 325 MG Tab PO PRN ×2 (15:15→19:41)
[2021-10-28] MEDS: Ibuprofen 600 MG Tab PO PRN ×2 (18:15→23:44)
[2021-10-29] MEDS: Ibuprofen 600 MG Tab PO PRN ×2 (05:00→09:16)
[2021-10-29] MEDS ORDERED: Prenatal Multivitamin with Calcium/Folic Acid/Iron Tab PO SCH (09:00)
[2021-10-29 14:00] VITALS: BP 115/68; PULSE 69
== END 2021-10-29 11:35 | disposition home or self-care (01) | DRG 560 ==
LOC: JD.OBCHECK 23:23 → JD.OB 23:26 → JD.OBCHECK 10-28 00:04 → JD.OB 10-28 00:05 → OBSVTOIN 10-28 10:50 → JD.OB 10-28 10:51
PROVIDERS: ADMIT Obstetrics & Gynecology; ATTEND Obstetrics & Gynecology
PROC: 10E0XZZ Delivery of Products of Conception, External Approach (ICD-10-PCS; principal; 2021-10-28)
PROC: 10907ZC Drainage of Amniotic Fluid, Therapeutic from Products of Conception, Via Natural or Artificial Opening (ICD-10-PCS; 2021-10-28)
PROC: 0W8NXZZ Division of Female Perineum, External Approach (ICD-10-PCS; 2021-10-28)
PROC: 3E033VJ Introduction of Other Hormone into Peripheral Vein, Percutaneous Approach (ICD-10-PCS; 2021-10-28)
PROC: 3E0R3BZ Introduction of Anesthetic Agent into Spinal Canal, Percutaneous Approach (ICD-10-PCS; 2021-10-28)
PROC: 00HU33Z Insertion of Infusion Device into Spinal Canal, Percutaneous Approach (ICD-10-PCS; 2021-10-28)
DX: O24.420 Gestational diabetes mellitus in childbirth, diet controlled (principal); Z37.0 Single live birth; O76 Abnormality in fetal heart rate and rhythm complicating labor and delivery; O99.62 Diseases of the digestive system complicating childbirth; K59.09 Other constipation; O99.02 Anemia complicating childbirth; D64.9 Anemia, unspecified; Z3A.37 37 weeks gestation of pregnancy; Z20.822 Contact with and (suspected) exposure to COVID-19; Z88.6 Allergy status to analgesic agent; Z91.011 Allergy to milk products; Z88.8 Allergy status to other drugs, medicaments and biological substances
CPT/HCPCS: 36415; 51702; 59025; 59409; 85025; 86592; 86850; 86900; 86901; A9270-GY; J0290; J2370; J2590; J3010; J7120; U0002